=== PATIENT | female | born 1950 | race African-American/Black ===

== ENCOUNTER 2020-12-25 11:08 | Emergency (ER) | payer BC, MEDICARE, OTHER ==
[~2020-12-25] VITALS: Ht 160 cm; Wt 60.0 kg
[~2020-12-25 11:08] MED LIST: AMLO-386 PO
[2020-12-25 14:44] VITALS: BP 145/63
== END 2020-12-25 14:45 | disposition home or self-care (01) ==
LOC: EMS 11:08
DX: S29.011A Strain of muscle and tendon of front wall of thorax, initial encounter (principal); I10 Essential (primary) hypertension; Z88.5 Allergy status to narcotic agent; V49.9XXA Car occupant (driver) (passenger) injured in unspecified traffic accident, initial encounter; Y93.89 Activity, other specified; Y92.89 Other specified places as the place of occurrence of the external cause; Y99.8 Other external cause status
CPT/HCPCS: 71250; 99284; Z7502